=== PATIENT | female | born 1975 | race Caucasian/White ===

== ENCOUNTER → 2020-12-05 07:00 | Outpatient (CLI) | payer OTHER, SELFPAY | PROVIDERS: Visit Provider Physician Assistant | DX: G47.10 Hypersomnia, unspecified (principal); R53.83 Other fatigue; R06.83 Snoring; E66.01 Morbid (severe) obesity due to excess calories; Z68.42 Body mass index [BMI] 45.0-49.9, adult | CPT/HCPCS: 95806 ==

== ENCOUNTER 2021-02-20 22:33 | Outpatient (CLI) | payer OTHER, SELFPAY | END 2021-02-20 23:59 | disposition short-term general hospital (02) | PROVIDERS: PCP Physician Assistant; Visit Provider Nurse Practitioner Acute Care | DX: G47.33 Obstructive sleep apnea (adult) (pediatric) (principal) | CPT/HCPCS: 95810 ==

== ENCOUNTER 2021-03-05 14:22 | Outpatient (CLI) | payer OTHER, SELFPAY ==
[2021-03-05 14:42] VITALS: BP 161/98; PULSE 84; RESP 16; TEMP 36.3; O2SAT 97; BMI 52.4
[2021-03-05] MEDS: 0.9% Saline Lock 10 ML Syringe IV (14:45)
[2021-03-05 15:30] VITALS: BP 138/66; PULSE 79; RESP 16; TEMP 36.4; O2SAT 99
[2021-03-05 16:19] VITALS: BP 138/90; PULSE 70; RESP 18; TEMP 36.4; O2SAT 98
== END 2021-03-05 23:59 | disposition home or self-care (01) ==
LOC: MS3OUT 14:23 → MS3 14:24
PROVIDERS: PCP Physician Assistant; Referring Provider Nurse Practitioner Adult Health; Visit Provider Nurse Practitioner Adult Health
DX: U07.1 COVID-19 (principal)
CPT/HCPCS: J7050; M0247; A4216; Q0247

== ENCOUNTER 2021-05-20 11:57 | Outpatient (CLI) | payer OTHER, SELFPAY | END 2021-05-20 23:59 | disposition home or self-care (01) | LOC: SL 11:57 | PROVIDERS: PCP Physician Assistant; Visit Provider Nurse Practitioner Acute Care | DX: Z46.89 Encounter for fitting and adjustment of other specified devices (principal) ==

== ENCOUNTER 2021-11-08 18:29 | Emergency (ER) | payer OTHER, SELFPAY ==
[2021-11-08 18:30] VITALS: BP 147/128; PULSE 111; RESP 18; TEMP 36.6; O2SAT 99; BMI 51.7
--- NOTE | 2021-11-08 18:48 | EKG12_ITS ---
Test Reason : SOB Blood Pressure : / mmHG Vent. Rate : 090 BPM Atrial Rate : 090 BPM P-R Int : 142 ms QRS Dur : 094 ms QT Int : 358 ms P-R-T Axes : 040 -05 -07 degrees QTc Int : 437 ms Normal sinus rhythm Normal ECG Confirmed by TIM COTTON, SYLVIA ([id number]), science editor YAIR LI ([id number]) on 11/11/2021 12:39:41 PM Referred By: Confirmed By:SYLVIA DUMONT MD
--- NOTE | 2021-11-08 18:49 | EDS_ITS ---
HPI History of Present Illness Chief Complaint: Asthma Informant: patient Onset/Context/Timing Onset: Weeks Context: gradual Timing: Intermittent Quality: Positive for Wheezing Current Severity: Mild Maximum Severity: Mild Worsened by: Coughing Relieved by: Albuterol Associated Symptoms cough; Negative for fever, sore throat, chills, sweats, white sputum, yellow sputum or green sputum Chest Pain: Positive for None Narrative Narrative: 46-year-old female history of asthma and cutaneous T-cell lymphoma. States she has been short of breath nonproductive cough for the last couple weeks. Initia lly history of prednisone for 5 days which improved her symptoms and when the pressure stopped it returned. She is now currently on a prednisone taper of 60 mg. Denies any fever or chills. No chest pain. No hemoptysis. No history of DVT or PE. No leg pain. She denies any chest pain. PE Risk Factors: Negative for Cancer, OCP + Smoking + > 35, Prior DVT or PE, Recent immobilization, Recent surgery or Recent travel Prior similar symptoms: Yes Recent Illness/Hospitalization: No PFSH PFSH Home Medications albuterol 90 mcg/actuation aerosol inhaler 90 mcg inhalation BID 03/05/21 [History Last Taken Unknown] hydroxyzine HCl 25 mg tablet 25 mg PO QHS 03/05/21 [History Last Taken Unknown] paroxetine HCl 30 mg tablet 30 mg PO DAILY 03/05/21 [History Last Taken Unknown] cholecalciferol (vitamin D3) 1,250 mcg (50,000 unit) capsule 1,250 mcg PO QWEEK 07/18/21 [History Last Taken Unknown] Allergy/AdvReac Type Severity Reaction Status Date / Time oxycodone [From Percocet] Allergy Intermediate UNKNOWN Verified 11/08/21 18:33 Surgical History History of cholecystectomy History of tubal ligation Social History Smoking Status: Never smoker ROS ROS ED ROS Narrative Wheezing. Nonproductive cough. Review of Systems ROS Unobtainable: Denies due to encephalopathy Constitutional Constitutional ED: Denies chills or fever(s) Eyes Eyes: Denies blurry vision Cardiovascular Cardiovascular: Denies chest pain or palpitations Respiratory/Chest Respiratory/Chest: Reports cough and dyspnea Gastrointestinal Gastrointestinal: Denies abdominal pain Genitourinary Genitourinary ED: Denies dysuria or hematuria Musculoskeletal Musculoskeletal: Denies arthralgias Integumentary Denies abscess Neurologic Neurologic: Denies headache(s) Psychiatric Psychiatric: Denies anxiety Endocrine Endocrinology: Denies cold intolerance Hematologic/Lymphatic Hematologic/Lymphatic: Denies easy bleeding Allergic/Immunologic Allergic/Immunologic ED: Denies mouth swelling EXAM Physical Exam Narrative Exam Narrative: 46-year-old female no acute distress. Vital signs stable although recheck her blood pressure is initially 147/128. Pulse ox is 99% on room air no hypoxia. She is in no distress. H EENT exam unremarkable. Neck nontender no JVD no lymphadenopathy. Lungs prolonged expiratory phase. Few scattered wheezes. No rales or rhonchi. Equal symmetrical. Heart regular rhythm rate about 110 no murmur. Abdomen soft nontender. Moving all 4 extremities. Calves are nontender. No cords. Neurologically she is awake and alert with no focal motor deficits. Const Vital Signs: 11/08/21 18:30 11/08/21 19:05 11/08/21 19:17 Temperature 97.8 F Temperature Source Temporal Pulse Rate 111 H 110 H Respiratory Rate 18 18 Respiratory Effort Short of Breath Labored Respiratory Depth Shallow Respiratory Pattern Tachypnea Blood Pressure 147/128 H Blood Pressure Mean 134 Pulse Ox 99 Oxygen Delivery Method Room Air Room Air 11/08/21 19:19 Temperature Temperature Source Pulse Rate 100 Respiratory Rate 20 H Respiratory Effort Respiratory Depth Respiratory Pattern Blood Pressure Blood Pressure Mean Pulse Ox 98 Oxygen Delivery Method Positive well nourished, well developed and obese; Negative for cachectic, contractures or unkempt General Appearance ED: well developed and NAD; Negative for unkempt, cachectic, contractures or pallor Nutritional Appearance: obese; Negative for cachectic HEENT Reports moist mucous membranes atraumatic; Negative for trauma or tenderness Eyes PERRL General Eye ED: Negative for pale conjunctiva or scleral icterus Neck no lymphadenopathy, supple, no meningeal signs and no JVD General: Negative for tenderness Resp normal respiratory effort and No clear to auscultation bilaterally Auscultation: wheezes; Negative for rales, rhonchi or diminished lung sounds Cardio regular rhythm, S1 normal heart sound, S2 normal heart sound and no murmurs; Negative for regular rate Rate: tachycardic; Negative for bradycardia Rhythm: Negative for abnormal rhythm GI non-tender, non-distended and no masses Inspection: Negative for other Auscultation: normoactive bowel sounds; Negative for hyperactive bowel sounds or hypoactive bowel sounds Palpation: soft; Negative for tender or guarding Back/Spine no CVA tenderness and normal to inspection General Back: Negative for CVA tenderness or tenderness Extremity normal to inspection General Extremety ED: Negative for edema or tenderness General Extremity: Negative for edema Neuro oriented x3, CN's II-XII intact bilaterally and no sensory deficits noted Sensorium / Orientation: alert, oriented to person, oriented to place and oriented to time; Negative for orientation impaired, confused, lethargic or stuporous Speech: speech normal Motor Exam: strength 5/5 throughout Psych mental status grossly normal Appearance: Negative for unkempt Attitude: No agitated Mood & Affect: Negative for depressed Thought Process: normal thought process Skin no wounds General Skin Exam: Negative for jaundice or pallor Lesions: no lesions Rashes: no rashes Trauma: Negative for abrasion or laceration MDM MDM MDM Narrative Medical decision making narrative: 46-year-old with bronchospasm. Chest x-ray and EKG will be obtained. She is already on steroids. She will be given albuterol and DuoNeb aerosols. Repeat exam at 8:15 PM patient doing well. Wheezing resolved. Good air movement onto the aerosols. She has nebulizer at home. She is currently on steroids. She will follow-up with her primary care provider if not improving. Radiography Chest X-Ray - ED: 1 View, Read by ED Physician, Read by Radiologist, Heart, Lungs, Mediastinum, Bony Structures, No Acute Disease and Chronic Changes Diagnostic Testing: Clinical Impression(s) from Imaging Studies Chest X-Ray 11/08/21 18:51 IMPRESSION: There are no acute findings. Electronically Signed: Joni Chacon MD at 19:24 EDT , Chest x-ray portable, single view shows no acute abnormality. Normal cardiac silhouette. No infiltrate. Interpreted by myself and the radiologist. Rhythm Strip Rhythm Strip: Sinus Rhythm Rate: 90 Ectopy: None EKG Initial EKG: Attestation: I personally reviewed and interpreted this EKG as follows: Interpretation: Sinus Rhythm and No Acute Injury Pattern Comments: Normal sinus rhythm rate of 90 no acute signs of [place] or ischemia. Discharge Plan Triage Chief Complaint: Asthma ED Provider: Enrique Valero Dx/Rx/DC Orders Clinical Impression: Asthma flare Instructions: Asthma Prescriptions: No Action paroxetine HCl 30 mg tablet 30 mg PO DAILY Label Comments: take 1 tablet by mouth once daily hydroxyzine HCl 25 mg tablet 25 mg PO QHS Label Comments: take 1 tablet by mouth at bedtime albuterol 90 mcg/actuation Aerosol 90 mcg INHALATION BID cholecalciferol (vitamin D3) 1,250 mcg (50,000 unit) capsule 1,250 mcg PO QWEEK Label Comments: take 1 capsule by mouth every week Primary Care Provider: Sobia Nguyen Referrals: Sobia Nguyen PA [Primary Care Provider] - 1 Week if not improving Activity Restrictions/Additional Instructions: Continue your steroid taper and finish that. Use your nebulizer as prescribed. Follow-up with your primary care provider if not improving. Your chest x-ray and EKG today were both normal. Disposition Disposition: Home, Self Care
--- NOTE | 2021-11-08 18:51 | RAD_ITS ---
STUDY: X-RAY CHEST REASON FOR EXAM: Female, 46 years old. CHEST PAIN dyspnea TECHNIQUE: XR Chest 1 View COMPARISON: None FINDINGS: There is no demonstrated pleural abnormality. Normal size heart. Normal mediastinum and any. Normal visualized pulmonary arteries. Normal visualized aortic arch and descending thoracic aorta. Normal visualized thoracic spine. Normal visualized ribs, clavicles, and shoulders. There is no demonstrated abnormality of the visualized soft tissue structures of the upper abdomen. RAD/Chest 1 View (Portable) IMPRESSION: There are no acute findings. Electronically Signed: Joni Chacon MD at 19:24 EDT ,
[2021-11-08] MEDS: Albuterol 2.5 MG/3 ML VIAL.NEB. INHALATION ×2 (19:03)
[2021-11-08] MEDS: Ipratropium/Albuterol Sulfate 3 ML AMPUL.NEB INHALATION (19:03)
[2021-11-08 19:05] VITALS: PULSE 110; RESP 18
[2021-11-08 19:17] VITALS: O2SAT 98
[2021-11-08 19:19] VITALS: PULSE 100; RESP 20; O2SAT 98
[2021-11-08 20:24] VITALS: PULSE 102; RESP 20; O2SAT 96
== END 2021-11-08 20:24 | disposition home or self-care (01) ==
PROVIDERS: Emergency Provider Emergency Medicine; PCP Physician Assistant; Visit Provider Emergency Medicine
DX: J45.901 Unspecified asthma with (acute) exacerbation (principal); Z68.43 Body mass index [BMI] 50.0-59.9, adult; E66.9 Obesity, unspecified; Z85.79 Personal history of other malignant neoplasms of lymphoid, hematopoietic and related tissues
CPT/HCPCS: 71045; 93005; 94640; 99282

== ENCOUNTER 2021-12-09 08:11 | Emergency (ER) | payer OTHER, SELFPAY ==
[2021-12-09 08:12] VITALS: BP 150/88; PULSE 89; RESP 18; TEMP 36.4; O2SAT 97; BMI 51.7
--- NOTE | 2021-12-09 08:28 | RAD_ITS ---
STUDY: X-RAY CHEST REASON FOR EXAM: Female, 46 years old. Sob TECHNIQUE: Single AP portable view of the chest. COMPARISON: Comparison is made with prior study 11/08/2021. FINDINGS: EKG electrodes are seen. The lungs are clear and expanded. There is no demonstrated pleural abnormality. Normal size heart. Normal mediastinum and any. Normal visualized pulmonary arteries. Normal visualized aortic arch and descending thoracic aorta. Normal visualized thoracic spine. Normal visualized ribs, clavicles, and shoulders. There is no demonstrated abnormality of the visualized soft tissue structures of the upper abdomen. RAD/Chest 1 View (Portable) IMPRESSION: Normal x-ray examination of the chest. Electronically Signed: Hernando Hernandez MD at 9:45 EDT ,
--- NOTE | 2021-12-09 08:30 | EDS_ITS ---
HPI History of Present Illness Chief Complaint: Asthma Detail of Chief Complaint: Cough, short of breath, wheezing Informant: patient Onset/Context/Timing Onset: Weeks Context: Gradual Onset Timing: Waxes and wanes Narrative Narrative: Patient presents secondary to asthma. She reports having cough, shortness of breath, wheezing ongoing for the past month or so. She is been on 2 rounds of prednisone and states she will improve on the medication but then worsen again once it stops. She was seen by nurse practitioner her PCPs office yesterday. She was written for cough syrup with codeine. She has spirometry testing scheduled this and is scheduled to see pulmonary, Dr. Mosley, on the . She was not written for additional steroids at her visit yesterday. She denies having fever or chills. She is having some right upper back pain. [facility] Medical History Asthma Cutaneous T-cell lymphoma KEYONNA (obstructive sleep apnea) Home Medications albuterol 90 mcg/actuation aerosol inhaler 90 mcg inhalation BID 03/05/21 [History Last Taken Unknown] hydroxyzine HCl 25 mg tablet 25 mg PO QHS 03/05/21 [History Last Taken Unknown] paroxetine HCl 30 mg tablet 30 mg PO DAILY 03/05/21 [History Last Taken Unknown] cholecalciferol (vitamin D3) 1,250 mcg (50,000 unit) capsule 1,250 mcg PO QWEEK 07/18/21 [History Last Taken Unknown] fluticasone 100 mcg-salmeterol 50 mcg/dose blistr powdr for inhalation (Advair Diskus) 1 inh inhalation BID #60 ea 12/09/21 [Rx Last Taken Unknown] Allergy/AdvReac Type Severity Reaction Status Date / Time oxycodone [From Percocet] Allergy Intermediate UNKNOWN Verified 12/09/21 08:15 Surgical History History of cholecystectomy History of tubal ligation Social History Smoking Status: Never smoker ROS ROS ED Constitutional Constitutional ED: Denies chills or fever(s) Eyes Eyes: Denies change in vision or discharge from eye(s) ENT ENT ED: Denies discharge from eye(s), rhinorrhea or sore throat Cardiovascular Cardiovascular: Denies chest pain or palpitations Respiratory/Chest Respiratory/Chest: Reports cough and dyspnea Gastrointestinal Gastrointestinal: Denies abdominal pain, diarrhea, nausea or vomiting Genitourinary Genitourinary ED: Denies dysuria Musculoskeletal Musculoskeletal: Reports back pain; Denies extremity pain Integumentary Denies Abrasions or rash Neurologic Neurologic: Denies headache(s) or weakness Allergic/Immunologic Allergic/Immunologic ED: Denies lip swelling or urticaria EXAM Physical Exam Const Vital Signs: 12/09/21 08:12 12/09/21 08:50 12/09/21 08:41 Temperature 97.5 F L Temperature Source Temporal Pulse Rate 89 97 Respiratory Rate 18 19 H Respiratory Effort Short of Breath Respiratory Depth Deep Respiratory Pattern Tachypnea Tachypnea Blood Pressure 150/88 H Blood Pressure Mean 108 Pulse Ox 97 Oxygen Delivery Method Room Air Room Air Positive well nourished and well developed General Appearance ED: well developed HEENT Reports normocephalic and head/scalp atraumatic Eyes PERRL and EOMs intact bilaterally Neck supple Chest Wall inspection of chest normal and palpation of chest normal Resp normal respiratory effort Resp Narrative: End expiratory wheezes. Cardio regular rate and regular rhythm GI normal to inspection, nondistended, normoactive bowel sounds Palpation: soft Extremity normal to inspection Neuro oriented x3 and no sensory deficits noted Sensorium / Orientation: alert Motor Exam: strength 5/5 throughout Psych mental status grossly normal Skin no rashes or lesions noted MDM MDM MDM Narrative Medical decision making narrative: EKG, chest x-ray, lab work obtained. Patient given a single dose of Solu-Medrol here as well as a DuoNeb treatment and albuterol. Lab Data Attestation: I reviewed the patient's lab results. Labs: Laboratory Results - last 24 hr 12/09/21 12/09/21 12/09/21 08:37 08:37 08:37 WBC 8.6 RBC 3.94 L Hgb 11.5 L Hct 34.4 L MCV 87.3 MCH 29.2 MCHC 33.4 RDW Std Deviation 46.2 H RDW Coeff of Primo 14.4 Plt Count 318 MPV 9.7 Immature Gran % (Auto) 0.600 Neut % (Auto) 68.0 Lymph % (Auto) 17.8 L [place] % (Auto) 5.0 Eos % (Auto) 7.7 H Baso % (Auto) 0.9 Absolute Neuts (auto) 5.8 Absolute Lymphs (auto) 1.52 Nucleated RBC % 0 D-Dimer Quant (PE/DVT) 0.68 H* Sodium 139 Potassium 3.7 Chloride 106 Carbon Dioxide 27.0 Anion Gap 6 BUN 8 Creatinine 0.64 Estim Creat Clear Calc 109.62 Est GFR (MDRD) Af Amer 127 Est GFR (MDRD) Non-Af 105 BUN/Creatinine Ratio 12.4 Glucose 98 Calcium 9.0 Troponin I High Sens 7 Radiography Chest X-Ray - ED: 1 View, Read by ED Physician, Chronic Changes and No Infiltrates Diagnostic Testing: Clinical Impression(s) from Imaging Studies Chest X-Ray 12/09/21 08:28 IMPRESSION: Normal x-ray examination of the chest. Electronically Signed: Hernando Hernandez MD at 9:45 EDT , Chest CTA 12/09/21 09:15 IMPRESSION: No evidence of pulmonary embolism. 4.4 mm noncalcified nodule in the lateral aspect of the right lower lobe. A 12 month follow-up is recommended. Electronically Signed: Hernando Hernandez MD at 10:06 EDT , EKG Initial EKG: Attestation: I personally reviewed and interpreted this EKG as follows: Interpretation: Sinus Rhythm (Sinus 81 with no acute ischemia.) Treatment and Re-Evaluation Narrative: CBC and chemistry studies unremarkable. Troponin is normal. D-dimer slightly elevated at 0.68. Chest x-ray per my interpretation reveals no focal infiltrate. EKG reveals no ischemia. Patient does feel improved after the steroid and breathing treatments. She is sent for CTA of the chest. This reveals a small nodule in the right lower lobe but no evidence of PE or infiltrate. I spoke with Dr. Mosley who the patient is scheduled to see next week. If we start her on a steroid taper at this time it will alter her PFTs an d ultimate treatment. We will start her on Advair twice daily and she will hold this 24 hours prior to her testing. Return instructions are provided. Discharge Plan Triage Chief Complaint: Asthma ED Provider: Elsy Valdes Dx/Rx/DC Orders Clinical Impression: Asthma exacerbation Instructions: ED Asthma, Acute (Adult) Prescriptions: New fluticasone propion-salmeterol [Advair Diskus] 100-50 mcg/dose blister with device 1 inh inhalation BID Qty: 60 0RF No Action paroxetine HCl 30 mg tablet 30 mg PO DAILY Label Comments: take 1 tablet by mouth once daily hydroxyzine HCl 25 mg tablet 25 mg PO QHS Label Comments: take 1 tablet by mouth at bedtime albuterol 90 mcg/actuation Aerosol 90 mcg INHALATION BID cholecalciferol (vitamin D3) 1,250 mcg (50,000 unit) capsule 1,250 mcg PO QWEEK Label Comments: take 1 capsule by mouth every week Primary Care Provider: Sobia Nguyen Referrals: Foreign Mosley DO [Med Staff - Active Staff] - Keep Dandre appointment Sobia Nguyen PA [Primary Care Provider] - Disposition Disposition: Home, Self Care
[2021-12-09] MEDS: Albuterol 2.5 MG/3 ML VIAL.NEB. INHALATION ×3 (08:39)
[2021-12-09] MEDS: Ipratropium/Albuterol Sulfate 3 ML AMPUL.NEB INHALATION (08:39)
[2021-12-09 08:41] VITALS: O2SAT 97
[2021-12-09 08:43] LABS: Absolute Lymphocyte Count 1.52 X10^3/uL (0.83-4.51); Absolute Neutrophil Count 5.8 X10^3/uL (2.0-7.7); Basophil# 0.08 X10^3/uL; Basophil% 0.9 % (0-1); Eosinophil# 0.66 X10^3/uL; Eosinophils% 7.7 % (0-5); Hematocrit 34.4 % (37-47); Hemoglobin 11.5 g/dL (12.0-15.0); Lymphocyte # 1.52 X10^3/ul (0.83-4.51); Lymphocyte % 17.8 % (19-41); Mean Corp Hgb Conc 33.4 g/dL (32-36); Mean Corpuscular Hgb 29.2 pg (27.0-32.0); Mean Corpuscular Volume 87.3 fL (81-99); Mean Platelet Vol. 9.7 fl (6.2-12.0); Monocyte# 0.43 X10^3/uL; NRBC Flagged by Analyzer 0 % (0-5); Neutrophil # 5.81 X10^3/uL (2.7-7.7); Platelet Count 318 K/mm3 (150-450); RBC Distribution Width CV 14.4 % (11.6-14.6); RBC Distribution Width SD 46.2 fl (35.1-43.9); Red Blood Count 3.94 M/mm3 (4.2-5.4); White Blood Count 8.6 K/mm3 (4.4-11.0)
[2021-12-09] MEDS: MethylPREDNISolone 125 MG/2 ML Vial IV (08:43)
[2021-12-09 08:50] VITALS: PULSE 97; RESP 19
[2021-12-09 08:58] LABS: Anion Gap 6 (5-15); BUN 8 mg/dL (7-18); BUN/Creat Ratio 12.4 RATIO (10-20); Chloride 106 mmol/L (98-107); Creatinine, Serum 0.64 mg/dL (0.55-1.02); EST Glomerular Filtration Rate 105 mL/min (>60); Est Glom Filt Rate - Afr Amer 127 mL/min (>60); Estimated Creatinine Clearance 109.62 ml/min; Glucose 98 mg/dL (74-106); Potassium 3.7 mmol/L (3.5-5.1); Sodium Level 139 mmol/L (136-145); Troponin-I HS 7 pg/mL (3.0-54.0)
[2021-12-09 09:02] LABS: D-Dimer Quantitative (DVT/PE) 0.68 FEU/ug/m (0.27-0.49)
--- NOTE | 2021-12-09 09:15 | CT_ITS ---
STUDY: CTA CHEST REASON FOR EXAM: Female, 46 years old. sob, elevated d-dimer RADIATION DOSAGE (If Supplied By Facility): CTDIvol = ( 15.03 ) mGy, DLP = ( 1139.07 ) mGycm TECHNIQUE: The examination was performed with the intravenous administration of IV 100mL Isovue-370. Post-processing of the angiographic images was performed, with multiplanar reformation and 3D reconstruction. Individualized dose optimization techniques were used for this CT. COMPARISON: None. FINDINGS: Normal enhancement of the main pulmonary artery and right and left pulmonary arteries. Normal enhancement of the bilateral peripheral pulmonary arteries. There is no demonstrated pulmonary embolism. Normal thoracic aorta and visualized great vessels. There is no demonstrated aortic dissection. Normal heart and pericardium. Normal mediastinum. Normal hilar regions. Normal visualized trachea and bronchi. The lungs are well expanded. There is a 4.4 mm noncalcified nodule in the lateral aspect of the right lower lobe as seen on axial image #148. Minimal atelectasis at the lung bases. Normal pleura. Normal chest wall structures. Normal osseous structures. Fatty infiltration of the liver. Small hiatal hernia. CT/CTA Chest W/WO Contrast IMPRESSION: No evidence of pulmonary embolism. 4.4 mm noncalcified nodule in the lateral aspect of the right lower lobe. A 12 month follow-up is recommended. Electronically Signed: Hernando Hernandez MD at 10:06 EDT ,
[2021-12-09 11:01] VITALS: PULSE 95; RESP 18; O2SAT 97
== END 2021-12-09 11:02 | disposition home or self-care (01) ==
PROVIDERS: Emergency Provider Emergency Medicine; PCP Physician Assistant; Visit Provider Emergency Medicine
DX: J45.901 Unspecified asthma with (acute) exacerbation (principal); M54.9 Dorsalgia, unspecified; G47.33 Obstructive sleep apnea (adult) (pediatric)
CPT/HCPCS: 71045; 71275; 80048; 84484; 85025; 85379; 93005; 94640; 96374; 99284; J7030; Q9967; A4216

== ENCOUNTER 2023-01-10 12:25 | Emergency (ER) | payer OTHER, SELFPAY ==
[2023-01-10 12:25] VITALS: BP 160/102; PULSE 70; RESP 16; TEMP 36.1; O2SAT 97; BMI 48.8
--- NOTE | 2023-01-10 12:41 | CT_ITS ---
STUDY: CT BRAIN WITHOUT CONTRAST REASON FOR EXAM: Female, 47 years old. Fall RADIATION DOSAGE (If Supplied By Facility): CTDIvol = ( 44.99 ) mGy, DLP = ( 796.11 ) mGycm TECHNIQUE: Transaxial CT imaging of the brain was performed without administration of intravenous contrast material. Individualized dose optimization techniques were used for this CT. COMPARISON: No relevant prior comparison study available FINDINGS: PARENCHYMA: There is no acute bleed or infarct. There are normal white matter tracts. VENTRICLES: There is no hydrocephalus. MASTOID AIR CELLS AND PARANASAL SINUSES: The visualized paranasal sinuses are clear. The mastoid air cells are clear. BONES: There is no skull fracture. SOFT TISSUES: The visualized soft tissues are within normal limits. CT/Brain/Head without Contrast IMPRESSION: No acute intracranial abnormality. No hydrocephalus Electronically Signed: Juaquin Grace MD at 13:18 EST ,
--- NOTE | 2023-01-10 12:41 | CT_ITS ---
INDICATION: facial trauma CT/Sinus/Facial Bone IMPRESSION: Unremarkable CT of the facial bones. Electronically Signed: Juaquin Grace MD at 13:36 EST ,
--- NOTE | 2023-01-10 12:47 | EDS_ITS ---
HPI <OSCAR Lui - Last Filed: 01/10/23 13:45> History of Present Illness Chief Complaint: Fall Narrative Narrative: Patient is a 47-year-old female with history of obesity, asthma who presents to the emergency department after mechanical fall. Patient states she was walking outside with holding things in her arms, her left foot got caught, she fell and struck the left side of her face on concrete. Patient denies any LOC however she was stung, she states that she did feel out of it immediately after the injury. She was unable to get up by herself. She states she now has a headache, feels nauseated she is here for evaluation. Patient denies being on any blood thinners. She denies any neck pain, she states she has a little pain to the left knee however she thinks it was just an abrasion. PFSH <OSCAR Lui - Last Filed: 01/10/23 13:45> [facility] Medical History Asthma Cutaneous T-cell lymphoma KEYONNA (obstructive sleep apnea) Home Medications albuterol 90 mcg/actuation aerosol inhaler 90 mcg inhalation BID 03/05/21 [History Last Taken Unknown] hydroxyzine HCl 25 mg tablet 25 mg PO QHS 03/05/21 [History Last Taken Unknown] paroxetine HCl 30 mg tablet 30 mg PO DAILY 03/05/21 [History Last Taken Unknown] cholecalciferol (vitamin D3) 1,250 mcg (50,000 unit) capsule 1,250 mcg PO QWEEK 07/18/21 [History Last Taken Unknown] fluticasone 100 mcg-salmeterol 50 mcg/dose blistr powdr for inhalation (Advair Diskus) 1 inh inhalation BID #60 ea 12/09/21 [Rx Last Taken Unknown] ondansetron 4 mg disintegrating tablet 4 mg PO Q8H PRN PRN Nausea #10 tabs 01/10/23 [Rx Last Taken Unknown] Allergy/AdvReac Type Severity Reaction Status Date / Time oxycodone [From Percocet] Allergy Intermediate UNKNOWN Verified 01/10/23 12:25 Surgical History History of cholecystectomy History of tubal ligation Social History Smoking Status: Never smoker ROS <OSCAR Lui - Last Filed: 01/10/23 13:45> ROS ED ROS Narrative Constitutional: Negative for fever, chills, weight loss, weakness Eyes: Negative for vision loss, vision change, double vision ENT: Negative for any sore throat, ear pain, congestion Cardiovascular: Negative for any chest pain, tightness, palpitations Respiratory: Negative for any cough, sputum production, hemoptysis, dyspnea, dyspnea on exertion, orthopnea Gastrointestinal: Negative for any abdominal pain, vomiting, diarrhea, constipation, blood in stool, blood in vomit. Positive for nausea : Negative for any urinary frequency, dysuria, retention, blood in urine Muscle skeletal: Negative for any myalgias, arthralgias, neck pain, back pain Neurological: Negative for any syncope, numbness or tingling, dizziness. Positive for headache Skin: Negative for any rashes, lumps, itching, lacerations. Positive for abrasions to the left eye, left cheek Psychiatric: Negative for any depression, anxiety, stress, suicidal ideation, homicidal ideation Hematologic: Negative for any easy bruising, excessive bruising, easy bleeding Allergies: Negative for any eczema, hives, rash EXAM <OSCAR Lui - Last Filed: 01/10/23 13:45> Physical Exam Narrative Exam Narrative: Vital signs reviewed. HEET: Head normocephalic atraumatic, TMs clear bilaterally. Posterior pharynx is clear, moist mucous membranes. Nares clear bilaterally. Pupils are equal round reactive to light. Negative for any hemotympanum, negative for any septal hematoma. Negative for ward sign. Patient does have abrasion to left eye, left cheek. Minimal pain to palpation to the left frontal sinus. Negative for any nystagmus. Neck: Supple with no lymphadenopathy or tenderness. No signs of meningismus. Cardiac: Regular rate and rhythm no murmurs gallops or rubs, equal peripheral pulses bilaterally. Respiratory: Lungs clear to auscultation bilaterally. No chest tenderness. Abdomen: Soft, nontender, nondistended. No abdominal bruit or pulsatile masses. No hepatosplenomegaly Extremities: No peripheral edema, no signs of gross trauma or deformity. Active full range of motion of all extremities. Neuro: Cranial nerves II through XII intact, no focal neurological deficits. Skin: Clean dry and intact with no rash, purpura, petechiae, vesicles or pustules. Backs/flank: No CVA tenderness, no midline spinal tenderness, no deformity. Psych: Normal mood and affect. No SI, HI or acute psychosis. Const Vital Signs: 01/10/23 12:25 01/10/23 12:25 01/10/23 14:18 Temperature 97.0 F L Temperature Source Temporal Pulse Rate 70 78 Respiratory Rate 16 18 Respiratory Effort Normal Non-Labored Respiratory Depth Normal Respiratory Pattern Normal Blood Pressure 160/102 H 130/74 H Blood Pressure Mean 121 92 Pulse Ox 97 98 Oxygen Delivery Method Room Air Room Air <Ryan Collazo MD - Last Filed: 01/10/23 15:15> Physical Exam Const Vital Signs: 01/10/23 12:25 01/10/23 12:25 01/10/23 14:18 Temperature 97.0 F L Temperature Source Temporal Pulse Rate 70 78 Respiratory Rate 16 18 Respiratory Effort Normal Non-Labored Respiratory Depth Normal Respiratory Pattern Normal Blood Pressure 160/102 H 130/74 H Blood Pressure Mean 121 92 Pulse Ox 97 98 Oxygen Delivery Method Room Air Room Air MDM <OSCAR Lui - Last Filed: 01/10/23 13:45> MDM Radiography Diagnostic Testing: Clinical Impression(s) from Imaging Studies Brain CT 01/10/23 12:41 IMPRESSION: No acute intracranial abnormality. No hydrocephalus Electronically Signed: Juaquin Grace MD at 13:18 EST , Facial/Sinus 01/10/23 12:41 IMPRESSION: Unremarkable CT of the facial bones. Electronically Signed: Juaquin Grace MD at 13:36 EST , Treatment and Re-Evaluation :: Patient appears generally well, patient appears nontoxic, vital signs are stable. Presenting to the emergency department after mechanical fall striking left side of her face on the concrete. Differential diagnosis includes skull fracture, intracranial bleeding, concussion syndrome, facial abrasion, facial fracture. Secondary the patient's description of feeling stunned, feeling out of it, immediate nausea, patient received a CT scan of the brain as well as vaginal facial bones. Patient will be given Tylenol, I did offer the patient a up-to-date on her tetanus vaccination however she refused. Patient CT scan of the brain shows no acute intracranial abnormality, CT scan of the facial bones showed no acute process. On reevaluation, the patient was feeling well. Patient states she did have slight relief with Tylenol. At this time, patient be diagnosed with closed head injury, concussion. I will provide the patient with nausea medications at home. She instructed to ice, she was given concussion education. All questions were answered, she was given return precautions, patient is happy with plan of care, she is stable for discharge <Ryan Collazo MD - Last Filed: 01/10/23 15:15> [facility] Narrative Medical decision making narrative: Dr. Collazo: I have personally performed a face to face assessment of the patient and have reviewed the FLORENCIO Note. I performed a substantive portion of the visit including all aspects of the following. My aguilera findings include: History is mechanical fall up stairs, hit face, abrasions to face with cut on bridge of nose. No reported loss of consciousness. Exam is GCS 15. ABCs intact. Multiple abrasions to face without active bleeding. Small laceration to bridge of nose also without active bleeding. No nasal septal hematoma. Moving all extremities. Able to raise arms above head without difficulty. Medical Decision Making: Check CT brain, check CT facial bones. Radiology reports reviewed. No acute process or fracture. Symptomatic treatment. Patient declines tetanus immunization. She was told that she could still receive it by her primary care physician within the next 72 hours. Discharge. Other additions or changes: [None] Radiography Diagnostic Testing: Clinical Impression(s) from Imaging Studies Brain CT 01/10/23 12:41 IMPRESSION: No acute intracranial abnormality. No hydrocephalus Electronically Signed: Juaquin Grace MD at 13:18 EST , Facial/Sinus 01/10/23 12:41 IMPRESSION: Unremarkable CT of the facial bones. Electronically Signed: Juaquin Grace MD at 13:36 EST , Discharge Plan Triage Chief Complaint: Fall ED Midlevel Provider: Heron Lyn ED Provider: Ryan Collazo Dx/Rx/DC Orders Clinical Impression: Concussion, CHI (closed head injury), Abrasion of face, Fall Instructions: Concussion Dc, ED Concussion Prescriptions: New ondansetron 4 mg tablet,disintegrating 4 mg PO Q8H PRN PRN (Reason: Nausea) Qty: 10 0RF No Action paroxetine HCl 30 mg tablet 30 mg PO DAILY Patient Comments: take 1 tablet by mouth once daily hydroxyzine HCl 25 mg tablet 25 mg PO QHS Patient Comments: take 1 tablet by mouth at bedtime albuterol 90 mcg/actuation Aerosol 90 mcg INHALATION BID cholecalciferol (vitamin D3) 1,250 mcg (50,000 unit) capsule 1,250 mcg PO QWEEK Patient Comments: take 1 capsule by mouth every week fluticasone propion-salmeterol [Advair Diskus] 100-50 mcg/dose blister with device 1 inh inhalation BID Qty: 60 0RF Primary Care Provider: Sobia Nguyen Referrals: Sobia Nguyen PA [Primary Care Provider] - Activity Restrictions/Additional Instructions: Ensure that you ice. Use the nausea medicine as needed. Tylenol, ibuprofen Disposition Disposition: Home, Self Care Discharge Date/Time: 01/10/23 14:19
[2023-01-10] MEDS: Acetaminophen 500 MG Tablet 1000 MG PO (13:27)
[2023-01-10 14:18] VITALS: BP 130/74; PULSE 78; RESP 18; O2SAT 98
== END 2023-01-10 14:19 | disposition home or self-care (01) ==
PROVIDERS: Emergency Provider Emergency Medicine; PCP Physician Assistant; Visit Provider Emergency Medicine
DX: S06.0X0A Concussion without loss of consciousness, initial encounter (principal); E66.9 Obesity, unspecified; S00.81XA Abrasion of other part of head, initial encounter; W18.39XA Other fall on same level, initial encounter; Y93.01 Activity, walking, marching and hiking; Y92.89 Other specified places as the place of occurrence of the external cause; J45.909 Unspecified asthma, uncomplicated; Z79.51 Long term (current) use of inhaled steroids; Z90.49 Acquired absence of other specified parts of digestive tract
CPT/HCPCS: 70450; 70486; 99282